=== PATIENT | male | born 1955 | race Caucasian/White ===

== ENCOUNTER 2017-10-31 07:12 | Observation (INO) | payer MEDICAID ==
[2017-10-31] MEDS ORDERED: NS 1,000 ML IV ONE (07:15)
--- NOTE | 2017-10-31 07:41 | CPEKG ---
Heart Rate: 58 RR Interval: 1034 P-R Interval: 204 QRSD Interval: 150 QT Interval: 464 QTC Interval: 456 P [place]: 38 QRS [place]: -56 T Wave [place]: 0 EKG Severity - ABNORMAL ECG - EKG Impression: SINUS RHYTHM EKG Impression: BORDERLINE [place] INTERVAL EKG Impression: RBBB AND LAFB Electronically Signed By: Dwayne Olson 31-Oct-2017 07:56:15
[2017-10-31 07:50] LABS: PLATELET COUNT 253 10^3/uL (150-400)
[2017-10-31 07:59] LABS: INR 1.03 (0.83-1.16); PROTIME(PATIENT) 13.7 SEC (12.0-15.0)
[2017-10-31] MEDS ORDERED: LIDOCAINE 1% 300 MG/30 ML SDV ONE (08:05)
[2017-10-31] MEDS ORDERED: ISOPROTERENOL HCL/D5W 0.2 MG/50 ML BAG IV ONE (08:06)
[2017-10-31] MEDS ORDERED: BUPIVACAINE 0.5% 10 ML SDV ONE (08:06)
[2017-10-31] MEDS ORDERED: HEPARIN 10,000 UNIT/10 ML MDV (1,000 UNIT/ML) ONE (08:06)
[2017-10-31] MEDS ORDERED: MIDAZOLAM 2 MG/2 ML VIAL ONE (08:33)
[2017-10-31] MEDS ORDERED: fentaNYL 100 MCG/2 ML INJ ONE (08:33)
[2017-10-31] MEDS ORDERED: PROPOFOL/EMULSION 500 MG/50 ML BOTTLE IV ONE (08:33)
--- NOTE | 2017-10-31 08:44 | PDANEPAE ---
ANE Past Medical History - Pulmonary History Hx Sleep Apnea: Yes ANE Review of Systems Review of Systems: ANE Patient History - Allergies Allergies/Adverse Reactions: No Known Allergies Allergy (Unverified 10/28/17 09:41) - Home Medications Home Medications: Herbals/Supplements -Info Only 1 ea PO DAILY 10/28/17 [Last Taken 10/29/17] Ibuprofen [Motrin (*)] 200 mg PO DAILY PRN 10/28/17 [Last Taken Unknown] Metoprolol Succinate Xr [Toprol Xl 25 mg (*)] 25 mg PO HS 10/28/17 [Last Taken 10/29/17] Rivaroxaban [Xarelto 10mg (*)] 20 mg PO HS 10/28/17 [Last Taken 10/28/17] - Smoking Hx Smoking Status: Former smoker ANE Labs/Vital Signs - Labs Result Diagrams: 10/31/17 07:45 10/31/17 07:45 - Vital Signs Height: 175 cm Weight: 90.7 kg ANE Physical Exam - Airway Neck exam: FROM, short neck Mallampati Score: Class 3 - Pulmonary Pulmonary: no rales or rhonchi, clear to auscultation - ASA Status ASA Status: III ANE Anesthesia Plan Anesthesia Plan: general endotracheal anesthesia Specialized Airway: video laryngoscope
--- NOTE | 2017-10-31 08:44 | PDGENHP ---
History & Physical Chief Complaint: atrial flutter Relevant Physical Exam: s1s2 rrr cta ao3 Cardiorespiratory Assessment: AFL for ablation. Has AFIB, will need Rx for this in future
[2017-10-31] MEDS ORDERED: PROPOFOL 200 MG/20 ML VIAL ONE (08:49)
[2017-10-31] MEDS ORDERED: LIDOCAINE 2% 5 ML SDV ONE (09:14)
[2017-10-31] MEDS ORDERED: PHENYLEPHRINE 10 MG/ML SDV ONE (09:14)
[2017-10-31] MEDS ORDERED: ROCURONIUM 50 MG/5 ML VIAL ONE ×2 (09:14→10:03)
[2017-10-31] MEDS ORDERED: SUGAMMADEX SODIUM 200 MG/2 ML VIAL IVP ONE ×2 (09:14→10:29)
[2017-10-31] MEDS ORDERED: ONDANSETRON 4 MG/2 ML VIAL ONE (09:14)
[2017-10-31] MEDS ORDERED: ALBUTEROL 3 ML DEYVIAL IH PRN (10:20)
[2017-10-31] MEDS ORDERED: NALOXONE HCL 0.4 MG/ML INJ IVP PRN (10:20)
[2017-10-31] MEDS ORDERED: fentaNYL 100 MCG/2 ML INJ IVP PRN (10:20)
[2017-10-31] MEDS ORDERED: ONDANSETRON 4 MG/2 ML VIAL IVP PRN (10:20)
--- NOTE | 2017-10-31 10:30 | EPPROC ---
Electrophysiology Procedure Note: ELECTROPHYSIOLOGIC STUDY AND CATHETER MEDIATED ABLATION FOR SUBEUSTACHIAN ISTHMUS DEPENDENT COUNTERCLOCKWISE ATRIAL FLUTTER: INDICATION: Recurrent atrial flutter PROCEDURES PERFORMED: 86465-74 EP evaluation with RA/RV/LA pace/record, with arrhythmia induction 69526-34 EP evaluation with RA/RV pace record, insert/reposition catheter, with arrhythmia induction 71164 SVT ablation 96866 3D mapping Fluoroscopy Catheters & Anesthesia: The patient arrived in the Electrophysiology Laboratory in the fasting state. The right clavicular region, right groin, and left groin area were prepped and draped in the usual sterile manner. Anesthesiologist Dr. Breaux administered general anesthesia. Appropriate non-invasive blood pressure, pulse oximetry and end-tidal CO2 monitoring was established. All catheters were placed percutaneously using the modified Seldinger technique , and advanced into position under fluoroscopic guidance. One #7 Bol[place]ian deflectable octapolar electrode catheter was advanced to the His-bundle position via the left femoral vein and was then placed into the coronary sinus. One # 7 [place] Halo catheter was inserted through the L femoral vein and was placed at the tricuspid annulus. Heparin 4000 u was administered . Programmed stimulation was performed from the right atrium, coronary sinus ( left atrium) and right ventricle. On arrival to the Electrophysiology Laboratory the patient was in sinus rhythm. Atrial flutter, CL 240-260 ms was easily induced by CS pacing. This terminated with entrainment from lat TA each time. Sustained AFL has been seen clinically. In preparation for ablation of typical atrial flutter, a high-resolution 3D (3 dimensional) Carto electroanatomical map of the sub-Eustachian isthmus and right atrium was obtained during pacing of the posterolateral coronary sinus. For ablation of typical atrial flutter, one #8.5 Bolivian SR0 sheath was placed in the right atrium. A #8 [place]ian deflectable quadrapolar electrode catheter ( 2mm-5mm-2mm spacing) with 3.5 mm irrigated tip electrode and location sensor for the [employer] mapping system was inserted in the long sheath and advanced to the right atrium. Radiofrequency applications were applied between the tricuspid annulus at 0630 oclock as seen in the DERRELL view and the inferior vena cava. This achieved conduction block across the isthmus. Septal to lateral conduction time 145 ms. Following ablation of the atrial flutter, programmed atrial stimulation was performed. No atrial arrhythmias were inducible post ablation. Post ablation, a high-resolution electroanatomical map of the sub-Eustachian isthmus was obtained during pacing of the posterolateral coronary sinus. This confirmed conduction block across the sub-Eustachian isthmus. Bidirectional block was also confirmed by pacing. The catheters were removed. ACT was 179 s. Sheaths were removed in the EP lab after applying subcutaneous purse string suture. The patient was transferred to the cardiovascular holding area in stable condition. There were no apparent complications. CONCLUSIONS: 1. Cavotricuspid isthmus dependent counterclockwise atrial flutter. 2. Successful catheter mediated ablation of cavotricuspid isthmus achieving bi -directional conduction block across cavotricuspid isthmus. 3. No atrial arrhythmias inducible post ablation. 4. Underlying RBBB. 5. No apparent complications. Patient Problems: Problems Problem Status Onset Atrial flutter Acute
[2017-10-31] MEDS ORDERED: OXYCODONE/APAP 5/325 TAB PO PRN (10:31)
[2017-10-31] MEDS ORDERED: ACETAMINOPHEN 325 MG TAB PO PRN (10:31)
--- NOTE | 2017-10-31 10:50 | CPEKG ---
Heart Rate: 56 RR Interval: 1071 P-R Interval: 204 QRSD Interval: 150 QT Interval: 484 QTC Interval: 468 P [place]: 48 QRS [place]: -55 T Wave [place]: -2 EKG Severity - ABNORMAL ECG - EKG Impression: SINUS RHYTHM EKG Impression: RBBB AND LAFB Electronically Signed By: Sherwin Boogie 31-Oct-2017 11:12:46
--- NOTE | 2017-10-31 11:46 | POSTANESTH ---
Post Anesthetic Evaluation Cardiovascular Status: Normal, Stable Respiratory Status: Normal, Stable Level of Consciousness/Mental Status: Can Participate in Eval Pain Control: Adequate, Prn Tx Ordered Nausea/Vomiting Control: Adequate, Prn Tx Ordered Complications Possibly Related to Anesthesia: None Noted
[2017-10-31 13:48] VITALS: RESP 16
[2017-10-31] MEDS ORDERED: METOPROLOL SUCCINATE XR 25 MG TAB PO SCH (21:00)
[2017-10-31] MEDS ORDERED: RIVAROXABAN 10 MG TAB PO SCH (21:00)
[2017-11-01 04:08] LABS: PLATELET COUNT 243 10^3/uL (150-400)
[2017-11-01 04:23] LABS: CREATINE KINASE 44 IU/L (0-224)
[2017-11-01 07:23] VITALS: BP 106/69; PULSE 87; TEMP 97.7; O2SAT 92
--- NOTE | 2017-11-01 08:52 | CPEKG ---
Heart Rate: 65 RR Interval: 923 P-R Interval: 172 QRSD Interval: 150 QT Interval: 440 QTC Interval: 458 P [place]: -25 QRS [place]: -70 T Wave [place]: 12 EKG Severity - ABNORMAL ECG - EKG Impression: SINUS RHYTHM EKG Impression: RBBB AND LAFB Electronically Signed By: Dwayne Olson 01-Nov-2017 11:04:16
--- NOTE | 2017-11-01 10:16 | ASMTLACE ---
BENITO Length of stay for Answers: 1 day current admission Acuity / Level of Answers: No Care: Did the patient have an inpatient admission? Comorbidities - select Answers: Other Notes: AFIB requiring ablation all that apply # of Emergency department Answers: 0 visits in the last 6 months Score: 2 Date Signed: 11/01/2017 10:15 AM Electronically Signed By:Ellie Bingham RN
--- NOTE | 2017-11-01 11:55 | GDS ---
[f rep st] DISCHARGE SUMMARY DISCHARGE DIAGNOSES: 1. Atrial flutter, status post atrial flutter ablation. 2. History of paroxysmal atrial fibrillation. 3. Obstructive sleep apnea, on continuous positive airway pressure. PROCEDURES: 1. 10/31/2017: Electrophysiology procedure with findings of cavotricuspid isthmus-dependent counter clockwise atrial flutter, status post catheter-mediated ablation of cavotricuspid isthmus achieving b idirectional conduction block. 2. 11/01/2017: Echocardiogram. BRIEF HISTORY: Please see dictated H and P by Dr. Boogie for complete details. In brief, the patient i s a 62-year-old male with a history of paroxysmal atrial fibrillation and flutter, right bundle branc h block, LAFB, DONTAE on CPAP, who presented for atrial flutter ablation. This was successfully complet ed on 10/31/2017. On day of discharge, patient denied any chest pain, dyspnea, throat pain, palpitat ions. PHYSICAL EXAM: VITAL SIGNS: Shows blood pressure 106/69, heart rate 87, respirations 16, O2 saturat ion 92% on room air, temp of 97.7 degrees Fahrenheit. GENERAL: He is a pleasant male in no apparent distress. EYES: PERRL. HEART: Regular rate and rhythm with a mid systolic click. LUNGS: Clear. EXTREMITIES: There are 2+ PT and DP pulses bilaterally. MUSCULOSKELETAL: Nontender groin sites. LABORATORY DATA: CBC with WBC 7.09, hemoglobin 13.4, hematocrit 41, platelet count 243. BMP with so dium 142, potassium 4.8, chloride 106, CO2 was 27, BUN 16, creatinine 0.9, glucose 83. Troponin 0.48 1 consistent with recent ablation. RESULTS PENDING: None. DIET: Per previous. ACTIVITY: Groin precautions were reviewed. DISCHARGE MEDICATIONS: Please see med reconciliation for complete details. He is being continued on all his home medications, which include Xarelto 20 mg p.o. h.s., Toprol-XL 25 mg p.o. h.s. DISCHARGE INSTRUCTIONS: 1. Groin precautions. 2. Follow up with Dr. Boogie as scheduled in 1 month's time. /[id number]/MODL
--- NOTE | 2017-11-01 14:11 | ECHO ---
[email or web address] [address] [address] Main: [phone] Fax: Transthoracic Echocardiogram Name: HOLLIE JACKSON MR#: [id number] Study Date: 11/01/2017 Study Time: 09:48 AM Date of : 1955 Age: 62 year(s) Height: 172.7 cm (68 in.) Weight: 90.27 kg (199 lb.) BSA: 2.04 m2 Gender: Male Examination: Echo Indication: Post Ablation Image Quality: Contrast: Requested by: Sherwin Boogie BP: 106 mmHg/69 mmHg Heart Rate: Rhythm: Indication: Post Ablation Procedure Staff Document Management Analyst: Braeden Boudreaux RDCS Reading Physician: Luis Stearns MD Requesting Provider: Conclusions: Normal size left ventricle. Normal global systolic LV function. EF is 72 %. No regional wall motion abnormality. Normal diastolic LV function. Measurements: Chambers Valvular Assessment AV/MV Valvular Assessment TV/PV Normal Normal Normal Name Value Range Name Value Range Name Value Range Ao [place] (MM): 3.6 cm (2.2 cm-3.7 AV Vmax: 1.14 m/s (1 m/s-1.7 PV Vmax: 0.83 m/s (0.6 m/s-0.9 cm) m/s) m/s) IVSd (2D): 0.9 cm (0.6 cm-1.1 AV maxP mmHg ( - ) PV PGmax: 3 mmHg ( - ) cm) LVOT Vmax: 0.90 m/s (0.7 m/s-1.1 LVDd (2D): 5.3 cm (4.2 cm-5.9 m/s) cm) MV E Vmax: 0.91 m/s ( - ) LVDs (2D): 3.1 cm (2.1 cm-4 MV A Vmax: 0.76 m/s ( - ) cm) MV E/A: 1.20 ( - ) LVPWd (2D): 1.0 cm (0.6 cm-1 cm) LVEF (2D): 72 (>=54 %) Continued Measurements: Chambers Name Value LADs Lon.9 cm LA Area: 14.9 cm2 LA Volume: 43 ml LA Volume Index: 21.1 ml/m2 Patient: HOLLIE JACKSON Study Date: 11/01/2017 Page 1 of 2 09:48 AM Findings: Left Ventricle: Normal size left ventricle. No LV hypertrophy. Normal global systolic LV function. EF is 72 %. No regional wall motion abnormality. Normal diastolic LV function. Right Ventricle: Normal size right ventricle. Left Atrium: The left atrium is normal in size. Right Atrium: The right atrium is normal in size. Mitral Valve: The mitral valve is normal in appearance and function. Aortic Valve: The aortic valve is tri-leaflet and functions normally. There is no aortic valve regurgitation. Tricuspid Valve: The tricuspid valve is normal in appearance and function. Pulmonic Valve: The pulmonic valve is normal in appearance and function. Aorta: The aorta is normal. Pericardium: No pericardial effusion. (No Signature Object) Patient: HOLLIE JACKSON Study Date: 11/01/2017 Page 2 of 2 09:48 AM [id number]
--- NOTE | 2017-11-01 14:33 | ASDISCHSUM ---
Discharge Information Plan Status:Home with No Needs Medically Cleared to Leave:11/01/2017 Discharge Date:11/01/2017 11:10 AM CM D/C Disposition:Home, Routine, Self-Care ADT D/C Disposition:Home, Routine, Self-Care Projected Discharge Date:11/01/2017 11:10 AM Transportation at D/C:Self Discharge Delay Reason: Follow-Up Date:11/01/2017 11:10 AM Discharge Slot: Final Diagnosis: Placement Information Patient Contact Information Contact Name:VANITANELLY Relationship:Life Partner Address:[address] Work Phone: City:[place] Alternate Phone: [facility]/Zip Code:[place] [address] Email: Financial Information Financial Class:Medicaid Primary Plan Desc:[employer] Primary Plan Number:[id number] Secondary Plan Desc: Secondary Plan Number: Assessment Information LACE LACE Length of stay for Answers: 1 day current admission Acuity / Level of Answers: No Care: Did the patient have an inpatient admission? Comorbidities - select Answers: Other Notes: AFIB requiring ablation all that apply # of Emergency department Answers: 0 visits in the last 6 months Score: 2 Date Signed: 11/01/2017 10:15 AM Electronically Signed By:Ellie Bingham RN Case Management Discharge Plan Note Case Management Discharge Discharge Order Complete? Answers: Yes Patient to Obtain Answers: Independently Medications Transportation Arranged Answers: Family/Friends Discharge Comments Notes: 11/01/2017 Case Management Note Pt admitted for ablation to treat afib. Pt was independent in ADL's prior to admission. Pt has support of life partner and is self employed. There are no case management d/c needs identified. Pt to d/c independent with follow up as directed. Date Signed: 11/01/2017 10:16 AM Electronically Signed By:Ellie Bingham RN Intervention Information
== END 2017-11-01 11:10 | disposition home or self-care (01) ==
LOC: FCATH 07:12 → F2W 10:08
PROVIDERS: ADMIT Internal Medicine Cardiovascular Disease; ATTEND Internal Medicine Cardiovascular Disease
PROC: 4A023FZ Measurement of Cardiac Rhythm, Percutaneous Approach (ICD-10-PCS; principal; 2017-10-31)
PROC: 02583ZZ Destruction of Conduction Mechanism, Percutaneous Approach (ICD-10-PCS; principal; 2017-10-31)
PROC: 02K83ZZ Map Conduction Mechanism, Percutaneous Approach (ICD-10-PCS; principal; 2017-10-31)
PROC: 5A1213Z Performance of Cardiac Pacing, Intermittent (ICD-10-PCS; principal; 2017-10-31)
DX: I48.92 Unspecified atrial flutter (principal); I48.91 Unspecified atrial fibrillation; I45.10 Unspecified right bundle-branch block; I44.4 Left anterior fascicular block; G47.33 Obstructive sleep apnea (adult) (pediatric); Z79.01 Long term (current) use of anticoagulants; Z87.891 Personal history of nicotine dependence
CPT/HCPCS: 93005; 93306; 93613; 93621; 93653; C1893; C1731; C1732; J1644; J2250; J2370; J2405; J2704; J3010

== ENCOUNTER 2018-10-18 10:21 | Day surgery (SDC) | payer MEDICAID ==
--- NOTE | 2018-10-18 08:36 | PDANEPAE ---
ANE History of Present Illness a flutter ANE Past Medical History - Cardiovascular History Hx Hypertension: Yes Hx Arrhythmias: Yes Hx Chest Pain: No Hx Coronary Artery / Peripheral Vascular Disease: No Hx CHF / Valvular Disease: No Hx Palpitations: No Cardiovascular History Comment: flutter - Pulmonary History Hx COPD: No Hx Asthma/Reactive Airway Disease: No Hx Recent Upper Respiratory Infection: No Hx Oxygen in Use at Home: No Hx Sleep Apnea: Yes - Endocrine History Hx Diabetes: No Hypothyroid: No Hyperthyroid: No Obesity: no - Chronic Pain History Chronic Pain: No - Surgical History Prior Surgeries: ablation 2018. tonsil as kid ANE Review of Systems Review of systems is: negative Review of Systems: - Exercise capacity METS (RN): 4 METS ANE Patient History - Allergies Allergies/Adverse Reactions: No Known Allergies Allergy (Unverified 10/28/17 09:41) - Home Medications Home medications: home medication list seen and reviewed Home Medications: Herbals/Supplements -Info Only 1 ea PO DAILY 10/28/17 [Last Taken 10/29/17] Ibuprofen [Motrin (*)] 200 mg PO DAILY PRN 10/28/17 [Last Taken Unknown] Metoprolol Succinate Xr [Toprol Xl 25 mg (*)] 25 mg PO HS 10/28/17 [Last Taken 10/17/18 22:00] Eliquis 5 mg PO BID 10/18/18 [Last Taken 10/18/18 06:00] Propafenone HCl 225 mg PO BID 10/18/18 [Last Taken 10/18/18 06:00] - NPO status NPO Status: no food or drink >8 hours - Anes Hx Anes Hx: no prior problems - Smoking Hx Smoking Status: Former smoker Marijuana use: No - Alcohol Use Alcohol Use: Rarely - Family Anes Hx Family Anes Hx: none ANE Labs/Vital Signs - Labs Result Diagrams: 10/18/18 10:45 ANE Physical Exam - Airway Neck exam: FROM Mallampati Score: Class 2 Mouth exam: normal dental/mouth exam - Pulmonary Pulmonary: no respiratory distress, clear to auscultation - Cardiovascular Cardiovascular: irregularly irregular - ASA Status ASA Status: III ANE Anesthesia Plan Anesthesia Plan: GA with mask Total IV Anesthesia: Yes
[2018-10-18] MEDS ORDERED: ATROPINE SULFATE 1 MG/10 ML SYR IVP ONE (10:25)
[2018-10-18] MEDS ORDERED: NS 500 ML IV ONE (10:25)
[2018-10-18] MEDS ORDERED: MIDAZOLAM 2 MG/2 ML VIAL IVP ONE (10:25)
[2018-10-18] MEDS ORDERED: BENZOCAINE UNIT DOSE SPRAY HURRICAINE MM ONE (10:25)
[2018-10-18] MEDS ORDERED: fentaNYL 100 MCG/2 ML INJ IVP ONE (10:25)
[2018-10-18 11:07] LABS: INR 1.32 (0.83-1.16); PROTIME(PATIENT) 15.8 SEC (12.0-15.0)
--- NOTE | 2018-10-18 11:53 | PDGENHP ---
History & Physical Chief Complaint: Atrial flutter History of Present Illness: Atrial flutter and atrial flutter with RVR. He is scheduled for CB PVI and AFL ablation in the next several weeks Relevant Physical Exam: General: A&Ox4, no apparent distress. Respiratory: CTA. Cardiac: Regular rhythm, tachycardia Cardiorespiratory Assessment: Proceed with cardioversion as planned for today with anticipated Afib/AFL ablation within the next several weeks.
[2018-10-18] MEDS ORDERED: PROPOFOL/EMULSION 500 MG/50 ML BOTTLE IV ONE (12:01)
[2018-10-18] MEDS ORDERED: NALOXONE HCL 0.4 MG/ML INJ IVP PRN (12:25)
--- NOTE | 2018-10-18 12:25 | PDTEE1 ---
NAHOMY Cardioversion Procedure Procedure: electrical cardioversion, transesophageal echo Indications: other (atrial flutter) Consent: signed and in chart Anticoagulation: eliquis Procedural Details: Pads were placed in anterior-posterior position. NAHOMY probe was advanced and standard images obtained. There is no evidence of left atrial or left atrial appendage thrombus. Synchronized cardioversion attempt #1: 50J Results: normal sinus rhythm Conclusions: successful ANHOMY cardioversion Patient Problems: Problems Problem Status Onset Atrial flutter Acute
--- NOTE | 2018-10-19 06:36 | ECHO ---
[email or web address] [place] [id number] Main: [phone] Fax: Transesophageal Echocardiography Name: HOLLIE JACKSON MR#: [id number] Study Date: 10/18/2018 Study Time: 12:08 PM Date of : 1955 Age: 63 year(s) Height: ( ) Weight: ( ) BSA: Gender: Male Examination: NAHOMY Indication: pre-cardioversion; r/o clot Image Quality: Contrast: I.V. dose of agitated saline Requested by: Sherwin Boogie Heart Rate: Rhythm: BP: / Procedure Staff Crm Consultant: Nahomy De Los Santos [facility] Reading Physician: Sherwin Boogie MD Requesting Provider: NAHOMY Exam Details Contrast: I.V. dose of agitated saline Measurements: Chambers Valvular Assessment AV/MV Valvular Assessment TV/PV Normal Normal Normal Name Value Range Name Value Range Name Value Range Visual EF: 45 % Additional Measurements: Findings: Left Ventricle: Normal size left ventricle. The ejection fraction is visually estimated to be 45 %. Left Atrium: An agitated saline study was performed and was negative for intracardiac shunting. Left Atrial Appendage: No thrombus in left appendage. Mitral Valve: The mitral valve is normal in appearance. Trivial to mild mitral regurgitation. Aortic Valve: The aortic valve is tri-leaflet. Trivial aortic valve regurgitation. Tricuspid Valve: The tricuspid valve appears normal. Trivial to mild tricuspid valve regurgitation. Pulmonic Valve: Patient: HOLLIE JACKSON Study Date: 10/18/2018 Page 1 of 2 12:08 PM Trivial pulmonic valve regurgitation. l1n (No Signature Object) Patient: HOLLIE JACKSON Study Date: 10/18/2018 Page 2 of 2 12:08 PM [id number]
== END 2018-10-18 13:43 | disposition home or self-care (01) ==
LOC: FCATH 10:21
PROVIDERS: ATTEND Internal Medicine Cardiovascular Disease
PROC: B245ZZ4 Ultrasonography of Left Heart, Transesophageal (ICD-10-PCS; principal; 2018-10-18)
PROC: 5A2204Z Restoration of Cardiac Rhythm, Single (ICD-10-PCS; principal; 2018-10-18)
DX: I48.92 Unspecified atrial flutter (principal); I48.0 Paroxysmal atrial fibrillation; G47.33 Obstructive sleep apnea (adult) (pediatric); E78.5 Hyperlipidemia, unspecified
CPT/HCPCS: J0461; J2704